=== PATIENT | male | born 1985 | race Caucasian/White ===

== ENCOUNTER → 2020-02-08 08:12 | Outpatient (BNVA) | payer BC, SELFPAY | PROVIDERS: Family Provider Student in an Organized Health Care Education/Training Program; PCP Pediatrics; Visit Provider Urology | DX: N39.9 Disorder of urinary system, unspecified (principal); Z12.5 Encounter for screening for malignant neoplasm of prostate; R31.29 Other microscopic hematuria | CPT/HCPCS: 81001 ==

== ENCOUNTER 2020-04-04 07:54 | Outpatient (CLI) | payer BC, SELFPAY ==
--- NOTE | 2020-04-04 08:00 | USCV_ITS ---
Eduardo Forman Age: 34 Gender: M : 1985 Exam Date: 04/04/2020 07:53 Ordering Phys: Klever Patel MD Technologist: Christi Shah Exam Location: [facility] [place] Indication: TACHY BP: 120 / 80 HR: 72 Rhythm: Sinus Technical Quality: Adequate MEASUREMENTS (Male / Female) Normal Values 2D ECHO LV Diastolic Diameter PLAX 5.2 cm 4.2 - 5.9 / 3.9 - 5.3 cm LV Systolic Diameter PLAX 3.2 cm LV Chamber Size 3.6 cm IVS Diastolic Thickness 1.0 cm 0.6 - 1.0 / 0.6 - 0.9 cm IVS Systolic Thickness 1.6 cm LVPW Diastolic Thickness 0.6 cm 0.6 - 1.0 / 0.6 - 0.9 cm LVPW Systolic Thickness 1.4 cm RV Chamber Size 3.6 cm LVOT Diameter 2.0 cm LV Ejection Fraction 2D Teich 68.8 % LV Ejection Fraction MOD 2C 28.0 % LV Ejection Fraction 2C AL 42.1 % LA Diameter 3.0 cm LA Width 3.1 cm LA Height 4.3 cm RA Width 3.9 cm RA Height 4.5 cm Aorta at Sinotubular Diameter 3.3 cm M-MODE LV Diastolic Diameter MM 5.0 cm 4.2 - 5.9 / 3.9 - 5.3 cm LV Systolic Diameter MM 3.0 cm LV Ejection Fraction MM Teich 70.4 % IVS Diastolic Thickness MM 0.7 cm 0.6 - 1.0 / 0.6 - 0.9 cm IVS Systolic Thickness MM 1.2 cm LVPW Diastolic Thickness MM 0.9 cm 0.6 - 1.0 / 0.6 - 0.9 cm LVPW Systolic Thickness MM 1.5 cm RV Diastolic Diameter MM 1.6 cm Aortic Annulus Diameter 3.8 cm LA Ao Ratio MM 0.8 MV E Point Septal Separation 0.5 cm DOPPLER AV Peak Velocity 145.0 cm/s LVOT Peak Velocity 102.0 cm/s AV Area Cont Eq vti 2.5 cm squared AV Area Cont Eq pk 2.3 cm squared MV Area PHT 5.4 cm squared Mitral E to A Ratio 1.3 MV E' Velocity 12.0 cm/s Mitral E to MV E' Ratio 5.2 Mitral E to LV E' Lateral Ratio 5.1 Mitral E to LV E' Septal Ratio 5.4 TR Peak Velocity 186.6 cm/s TR Peak Gradient 13.9 mmHg TR Mean Velocity 135.1 cm/s TR Mean Gradient 8.5 mmHg TR Velocity Time Integral 41.1 cm TV Peak E Velocity 57.0 cm/s Right Atrial Pressure 3.0 mmHg Pulmonary Artery Systolic Pressu 16.9 mmHg PV Peak Velocity 62.0 cm/s RV Acceleration Time 0.1 s RV Ejection Time 0.3 s RV AcT/ET 0.4 FINDINGS Left Ventricle Normal left ventricular cavity size. Normal left ventricular systolic function. No regional wall motion abnormalities. Left ventricular ejection fraction is estimated at 65 %. Grade II/IV diastolic dysfunction, moderately elevated filling pressures. Right Ventricle The right ventricle is normal in size and function. Right Atrium The right atrium is normal in size. Left Atrium The left atrium is normal in size. Mitral Valve Moderately thickened mitral valve. No mitral valve stenosis. No mitral valve regurgitation. Aortic Valve Moderate aortic valve calcification. No aortic valve stenosis. No aortic valve regurgitation. Tricuspid Valve Mild tricuspid valve regurgitation. Pulmonic Valve Structurally normal pulmonic valve without significant stenosis. There is no pulmonic regurgitation. Pericardium Normal pericardium without effusion. Aorta Normal ascending aorta dimension. CONCLUSIONS 1-Normal left ventricular cavity size. Normal left ventricular systolic function. No regional wall motion abnormalities. Left ventricular ejection fraction is estimated at 65 %. Grade II/IV diastolic dysfunction, moderately elevated filling pressures. 2-Moderately thickened mitral valve. No mitral valve stenosis. No mitral valve regurgitation. 3-Moderate aortic valve calcification. No aortic valve stenosis. No aortic valve regurgitation. 4-Mild tricuspid valve regurgitation. 5-There is no pericardial effusion. 6-Right atrial pressure is around 5 mm of mercury. 7-There are no prior echocardiogram studies to compare. Klever Patel MD (Electronically Signed) Final Date: 04 Apr 2020 17:18 S
--- NOTE | 2020-04-04 11:18 | ECG_ITS ---
Measurements Intervals [place] Rate: 67 P: 25 ID: [id number] QRS: 64 QRSD: 87 T: 59 QT: 357 QTc: 379 SINUS RHYTHM WITH SHORT ID INTERVAL POSSIBLE RIGHT VENTRICULAR CONDUCTION DELAY [RSR (QR) IN V1/V2] MODERATE ST DEPRESSION [0.05+ mV ST DEPRESSION] No previous ECG available for comparison Electronically Signed On 04-04-2020 18:44:50 CDT by Roman Santiago M.D. [email or web address]
== END 2020-04-04 07:55 | disposition home or self-care (01) ==
PROVIDERS: PCP Pediatrics; Visit Provider Internal Medicine Cardiovascular Disease
DX: I47.1 Supraventricular tachycardia (principal); R07.9 Chest pain, unspecified; R94.31 Abnormal electrocardiogram [ECG] [EKG]; I08.3 Combined rheumatic disorders of mitral, aortic and tricuspid valves
CPT/HCPCS: 93005; 93306